=== PATIENT | female | born 1950 | race Caucasian/White ===

== ENCOUNTER 2022-07-11 11:15 | Outpatient (CLI) | payer MEDICARE, BC, SELFPAY ==
[2022-07-11 13:08] LABS: Albumin* 4.9 g/dL (3.3-5.0); Chloride* 105 mmol/L (96-114)
[2022-07-11 13:09] LABS: Potassium* 4.3 mmol/L (3.6-5.1); Sodium* 141 mmol/L (135-149)
[2022-07-11 13:11] LABS: Aspartate Amino Transferase* 22 U/L (12-35); Bilirubin Total* 2.1 mg/dL (0.1-1.5); Carbon Dioxide* 29 mmol/L (20-32); Creatinine* 0.7 mg/dL (0.5-1.5); Estimated Glomerular Filt Rate 92 ml/min
[2022-07-11 13:12] LABS: Alanine Aminotransferase* 17 U/L (4-35); Alkaline Phosphatase* 57 U/L (40-150); Blood Urea Nitrogen* 22 mg/dL (7-30); Calcium* 10.3 mg/dL (8.4-10.6); Glucose* 100 mg/dL (60-115); Total Protein* 7.5 g/dL (6.0-8.3)
== END 2022-07-11 11:16 | disposition home or self-care (01) ==
LOC: NFLDREF 11:16
PROVIDERS: PCP Internal Medicine; Visit Provider Family Medicine
DX: R42 Dizziness and giddiness (principal); R53.83 Other fatigue
CPT/HCPCS: 80053

== ENCOUNTER 2022-07-23 14:09 | Outpatient (RCR) | payer MEDICARE, BC, SELFPAY ==
[2022-07-23 14:35] LABS: Chloride* 102 mmol/L (96-114); Potassium* 3.8 mmol/L (3.6-5.1); Sodium* 138 mmol/L (135-149)
[2022-07-23 14:38] LABS: Creatinine* 0.7 mg/dL (0.5-1.5); Estimated Glomerular Filt Rate 92 ml/min
[2022-07-23 14:39] LABS: Blood Urea Nitrogen* 18 mg/dL (7-30); Calcium* 9.8 mg/dL (8.4-10.6); Carbon Dioxide* 27 mmol/L (20-32); Glucose* 127 mg/dL (60-115)
[2022-07-23] MEDS: DENOSUMAB 60 MG/ML SYRINGE SUBCUT (15:02)
--- NOTE | 2022-08-01 13:50 | URNOTE ---
Request received from [facility] for prior authorization of Prolia ([id number]). Patient carries Medicare as primary insurance. Prior authorization is not required for Prolia. Services are based on medical necessity and follows Medicare guidelines.
--- NOTE | 2022-09-24 11:26 | PC.NURSE ---
ONCOLOGY TRANSFER: Patient called today to discuss her options in transferring care. Patient informed that Dr. Sullivan will be joining the [facility] practice likely in January of 2023. Patient would like to continue her care with Dr. Sullivan and is comfortable transferring her care to the [facility] team. Patient will be due in January for follow up and Prolia. She is aware that we will contact her to schedule that follow up closer to the time it is due.
== END 2023-01-19 23:59 | disposition home or self-care (01) ==
LOC: CCIC 14:09
PROVIDERS: PCP Internal Medicine; Referring Provider Internal Medicine; Visit Provider Internal Medicine Hematology & Oncology
DX: C50.911 Malignant neoplasm of unspecified site of right female breast (principal); Z17.0 Estrogen receptor positive status [ER+]; Z79.811 Long term (current) use of aromatase inhibitors; M85.80 Other specified disorders of bone density and structure, unspecified site; M81.0 Age-related osteoporosis without current pathological fracture
CPT/HCPCS: 36415; 80048; 96372; 99212; 99214; J0897

== ENCOUNTER 2022-07-24 08:31 | Outpatient (CLI) | payer MEDICARE, BC, SELFPAY ==
--- NOTE | 2022-07-24 08:45 | CRLHL7_ITS ---
For Patients: As a result of the Century Cures Act, medical imaging exams and procedure reports are released immediately into your electronic medical record. You may view this report before your referring provider. If you have questions, please contact your health care provider. INDICATION: RUQ PAIN COMPARISON: none TECHNIQUE: Real time hall scale imaging and color Doppler analysis was performed of the right upper quadrant. FINDINGS: There is a subtle area of heterogeneous hyperechoic echotexture within the right hepatic lobe measuring 2.6 x 1.8 x 2.8 cm. There is a normal appearance of the hepatic IVC and proximal abdominal aorta. There is no evidence of ascites. The gallbladder is of normal size and there is no evidence of intraluminal stones or sludge. The gallbladder wall measures 1 mm in thickness. The common bile duct is of normal size and measures 2 mm in diameter at the level of the omar hepatis. The pancreas is heterogeneous within the pancreatic head. There is no evidence of a stone or hydronephrosis within the right kidney. The right kidney measures 12.0 cm in length. Multiple simple cysts are present measuring up to 6.7 cm. This larger cyst has thin internal septations considered benign. There is an indeterminate area slightly decreased echotexture with punctate foci of increased echogenicity within the upper pole of the right kidney measuring 3.4 cm. IMPRESSION: Indeterminate area of slightly increased echotexture within the right hepatic lobe measuring 2.8 cm. Indeterminate area of slightly hypoechoic echotexture within the upper pole of the right kidney. Multiple anechoic and other simple right renal cysts. Slightly hypoechoic echotexture of the pancreatic head considered indeterminate. Recommend routine CT of the abdomen and pelvis with contrast for further evaluation of the above findings. Dictated by Wyatt Andrews MD @ 07/24/2022 10:27:44 AM (Electronically Signed)
== END 2022-07-24 08:32 | disposition home or self-care (01) ==
LOC: US 08:32
PROVIDERS: PCP Internal Medicine; Visit Provider Internal Medicine
DX: R10.11 Right upper quadrant pain (principal); N28.9 Disorder of kidney and ureter, unspecified; N28.1 Cyst of kidney, acquired; K76.9 Liver disease, unspecified
CPT/HCPCS: 76705

== ENCOUNTER 2022-08-01 09:05 | Outpatient (CLI) | payer MEDICARE, BC, SELFPAY ==
--- NOTE | 2022-08-01 10:00 | CRLHL7_ITS ---
For Patients: As a result of the Century Cures Act, medical imaging exams and procedure reports are released immediately into your electronic medical record. You may view this report before your referring provider. If you have questions, please contact your health care provider. Indication: Right upper quadrant pain Technique: Postcontrast CT abdomen and pelvis. 59 cc Isovue 370 intravenous contrast. Please note that all CT scans at this facility use dose modulation, iterative reconstruction, and/or weight-based dosing when appropriate to reduce radiation dose to as low as reasonably achievable. Comparison: Ultrasound 07/24/2022 Findings: There is an incidental focus of fat deposition within the liver adjacent to the falciform ligament. Incidental subcentimeter cyst is located within the right hepatic lobe. No suspicious hepatic mass. No stigmata of cirrhosis. No ascites. Gallbladder normal. The pancreatic parenchyma is also normal. No pancreatic mass or evidence of inflammation. There is an incidental duodenal diverticulum measuring 2.2 cm. Multiple cystic lesions are associated with the kidneys bilaterally. The largest on the left contains peripheral coarse calcifications and measures up to 6.7 cm, compatible with a Bosniak 2 cyst. This is benign. The largest cyst on the right measures 5.9 cm. Small hypodense cysts are present within the upper pole of the right kidney measuring up to 1.1 cm. No suspicious renal mass within the upper pole. Vascular calcifications. Adrenal glands normal. Mild ectasia of the aorta without aneurysm. No splenic lesion. No adenopathy. Bladder normal. Uterus unremarkable. No adnexal mass. No free air or free fluid. There is increased stool within the redundant colon. No small bowel obstruction. No inflammatory change. The appendix is absent. Lung bases are clear. Multilevel degenerative changes. No fracture or suspicious osseous lesion. Impression: Multifocal benign findings throughout the abdomen without suspicion for malignancy/metastatic disease. Increased stool within the redundant colon suggesting chronic constipation. Mild incidental sigmoid diverticulosis. Please note that all CT scans at this facility use dose modulation, iterative reconstruction, and/or weight-based dosing when appropriate to reduce radiation dose to as low as reasonably achievable. Dictated by Wyatt Andrews MD @ 08/01/2022 10:38:17 AM (Electronically Signed)
== END 2022-08-01 09:06 | disposition home or self-care (01) ==
LOC: CT 09:06
PROVIDERS: PCP Internal Medicine; Visit Provider Internal Medicine
DX: R10.11 Right upper quadrant pain (principal)
CPT/HCPCS: 74177; Q9967

== ENCOUNTER 2022-12-13 16:40 | Emergency (ER) | payer MEDICARE, BC, SELFPAY ==
[2022-12-13] VITALS (7 sets, daily range): BP systolic 118–174; BP diastolic 78–105; PULSE 90–105; RESP 13–22; TEMP 36.4; O2SAT 96–100; BMI 23.8
--- NOTE | 2022-12-13 16:53 | CRLHL7_ITS ---
For Patients: As a result of the Century Cures Act, medical imaging exams and procedure reports are released immediately into your electronic medical record. You may view this report before your referring provider. If you have questions, please contact your health care provider. DATE: 12/13/2022 CLINICAL HISTORY: Patient with focal neurological deficits. TECHNIQUE: Standard helical CT image acquisition through the intracranial circulation following intravenous administration of contrast material with bolus tracking. Multiplanar reconstructed images were performed and interpreted. COMPARISON: CT same day. FINDINGS: There is no cerebral aneurysm or large vessel occlusion. The right internal carotid artery is normal. The right middle cerebral artery and its branches are normal. The right anterior cerebral artery and its branches are normal. The left internal carotid artery is normal. The left middle cerebral artery and its branches are normal. The left anterior cerebral artery and its branches are normal. The anterior communicating artery is well visualized and appears normal. The right vertebral artery and PICA are normal. The left vertebral artery and PICA are normal. The left vertebral artery is dominant. The basilar artery is patent and appears normal. The right posterior cerebral artery is normal. The left posterior cerebral artery is normal. The visualized venous structures are patent. IMPRESSION: Normal CT angiogram of the head without intracranial aneurysm or other neurovascular abnormality. Please note that all CT scans at this facility use dose modulation, iterative reconstruction, and/or weight-based dosing when appropriate to reduce radiation dose to as low as reasonably achievable. Dictated by Jen Dewitt MD @ 12/13/2022 6:11:11 PM (Electronically Signed)
--- NOTE | 2022-12-13 16:53 | CRLHL7_ITS ---
For Patients: As a result of the Cures Act, medical imaging exams and procedure reports are released immediately into your electronic medical record. You may view this report before your referring provider. If you have questions, please contact your health care provider. DATE: 12/13/2022 CLINICAL HISTORY: Patient with focal neurological deficits. TECHNIQUE: Standard helical CT image acquisition of the neck up to the skull base after bolus intravenous contrast enhancement. Multiplanar reconstructed images performed on a separate workstation. COMPARISON: CT same day. FINDINGS: The origins of the great vessels from the aortic arch are patent. The origin of the right vertebral artery is patent. The origin of the left vertebral artery is patent. The common carotid arteries are patent. There is no stenosis at the origin of the right internal carotid artery. There is no stenosis at the origin of the left internal carotid artery. The rest of the cervical segments of the internal carotid arteries are patent up to the skull base. The left vertebral artery is dominant. The cervical segments of the vertebral arteries are patent up to the skull base. The visualized lung apices are unremarkable. The thyroid gland is unremarkable. The soft tissues of the neck are unremarkable. There are degenerative changes in the cervical spine. IMPRESSION: Normal CT angiogram of the neck. Please note that all CT scans at this facility use dose modulation, iterative reconstruction, and/or weight-based dosing when appropriate to reduce radiation dose to as low as reasonably achievable. Dictated by Jen Dewitt MD @ 12/13/2022 6:06:42 PM (Electronically Signed)
--- NOTE | 2022-12-13 16:53 | CRLHL7_ITS ---
For Patients: As a result of the Cures Act, medical imaging exams and procedure reports are released immediately into your electronic medical record. You may view this report before your referring provider. If you have questions, please contact your health care provider. INDICATION: Possible stroke. COMPARISON: None. TECHNIQUE: CT of the head without IV contrast. Coronal and sagittal reconstructions. FINDINGS: No intracranial hemorrhage, mass effect, or evidence of acute infarct. No midline shift. No abnormal extra-axial fluid collections. Mild generalized cerebral and cerebellar volume loss with associated ex vacuo dilation of the lateral ventricles. Orbits and extraocular muscles are symmetric. Mild mucosal thickening in the maxillary sinuses. The paranasal sinuses and mastoid air cells are otherwise clear. No acute fracture identified. Soft tissues are unremarkable. IMPRESSION: No acute intracranial findings. Please note that all CT scans at this facility use dose modulation, iterative reconstruction, and/or weight-based dosing when appropriate to reduce radiation dose to as low as reasonably achievable. Dictated by Yani Velasquez MD @ 12/13/2022 5:36:38 PM (Electronically Signed)
[2022-12-13 17:03] LABS: Lactate* 1.8 mmol/L (0.5-1.9)
--- NOTE | 2022-12-13 17:04 | ED.GENADULT ---
HPI - General Adult General Chief complaint: Altered Mental Status Stated complaint: possible stroke Time Seen by Provider: 12/13/22 16:52 Source: patient and family Mode of arrival: ambulatory Limitations: altered mental status History of Present Illness HPI narrative: 72-year-old female coming in today with acute confusion. states that they were having sexual intercourse and afterwards or lying in bed when all of a sudden she looked at him confused asked him why they were having this conversation. He explain to her what they were talking about and she became acutely agitated and stated that she did not know what day it was, what they were doing or what her name was. She started crying. She did repeat the same questions repeatedly. And he brought her into the emergency room. Upon arrival patient is very agitated. She is very tearful and anxious. Patient's tells me that this is very abnormal behavior for her. Denies any recent illness. States that she has been acting normal up until approximately 1 hour ago when this started. Related Data Home Medications Medication Instructions Recorded Confirmed acetaminophen 325 mg tablet 650 mg PO Q4-6H PRN 07/18/22 10/03/22 calcium carbonate 600 mg-vitamin 2 cap PO DAILY 07/18/22 10/03/22 D3 12.5 mcg (500 unit) capsule cholecalciferol (vitamin D3) 25 1,000 unit PO DAILY 07/18/22 10/03/22 mcg (1,000 unit) tablet denosumab 60 mg/mL subcutaneous 60 mg subcut [id number] 07/18/22 10/03/22 syringe ibuprofen 200 mg tablet 400 mg PO Q4-6H PRN 07/18/22 10/03/22 coQ10 (ubiquinol) 100 mg capsule 100 mg PO DAILY 10/03/22 10/03/22 Previous Rx's Medication Instructions Recorded anastrozole 1 mg tablet (Arimidex) 1 mg PO QDAY #100 tabs 06/26/22 nirmatrelvir 300 mg (150 mg 3 ea PO QAM AND QPM #30 tabs 10/03/22 x2)-ritonavir 100 mg tablet,dose pack(EUA) (Paxlovid) Allergies Allergy/AdvReac Type Severity Reaction Status Date / Time No Known Allergies Allergy Unknown unknown Uncoded 10/03/22 16:12 Review of Systems Status of ROS: Reports: unobtainable due to mental status PFSH PFSH Surgical History History of appendectomy (05/19/09) History of tubal ligation (05/19/09) Social History Smoking Status: Never smoker Exam Narrative: Exam Narrative: Well-nourished well-developed patient very agitated and tearful. Alert and oriented x2, cannot tell me the date or year. She can tell me her name, where she is, who is in the room. She knows the president. Patient speaks in full sentences without needing to catch her breath. GCS is 15. HEENT: Normocephalic atraumatic. Pupils are equally round reactive to light. Extraocular muscles are intact. Conjunctivae are moist without any icterus noted. Moist mucous membranes. Posterior pharynx is normal. Neck is soft without any lymphadenopathy or thyromegaly. No masses are appreciated. Cardiovascular: Heart is regular rate and rhythm S1 and S2 are present without any murmurs. Lungs: Clear to auscultation bilaterally no wheezes rhonchi or rales are appreciated. Patient takes deep breaths without any discomfort. Abdomen: Soft and nontender nondistended with normal bowel sounds. Extremities: Bilateral lower extremities are without edema. Normal DP and PT pulses. Skin: Well perfused without any obvious rashes. Strength is 5/5 of the upper and lower extremities. Reflexes are 2+ and symmetric at the knees. Cranial nerves 3-12 are normal. There is no nystagmus either horizontally or vertically. Const: Vital Signs, click to edit/add: Vital Signs - 24 hr 12/13/22 16:46 Temperature 97.5 F L Pulse Rate [Pulse Oximeter] 102 H Respiratory Rate 22 Blood Pressure [Ri ght Upper Arm] 174/95 H Pulse Oximetry 98 Oxygen Delivery Me thod Room Air Course Course Hospital Course: Patient went to CT scan immediately. Scans are unremarkable. Labs were all normal. EKG shows normal sinus rhythm with a pulse of 93, prolonged QT. Did re-evaluate the patient after CT scans and after she received a dose IV Ativan. Her symptoms ready significantly better. She could tell me the date, year, president where she was. She was started to remember things from earlier in the day such as what she had for breakfast. I did consult Neurology, Dr. Cervantes, at [facility] who felt that this represented a post intercourse transient global amnesia given her normal workup. Given her symptoms, timing of symptoms and the fact that she was already improving, this certainly does fit. Vital Signs Vital signs: Initial Vital Signs Temperature 97.5 F L 12/13/22 16:46 Temperature Source Temporal Artery Scan 12/13/22 16:46 Pulse Rate 102 H 12/13/22 16:46 Pulse Rhythm 12/13/22 16:46 Pulse Strength 3+ Normal 12/13/22 16:46 Respiratory Rate 22 12/13/22 16:46 Blood Pressure 174/95 H 12/13/22 16:46 Blood Pressure Mean 121 12/13/22 16:46 Blood Pressure Position Sitting 12/13/22 16:46 Pulse Oximetry 98 12/13/22 16:46 Oxygen Delivery Method 12/13/22 16:46 Vital Signs Temperature 97.5 F L 12/13/22 16:46 Pulse Rate 102 H 12/13/22 16:46 Respiratory Rate 22 12/13/22 16:46 Blood Pressure 174/95 H 12/13/22 16:46 Pulse Oximetry 98 12/13/22 16:46 Oxygen Delivery Method 12/13/22 16:46 Temperature 97.5 F L 12/13/22 16:46 Pulse Rate 102 H 12/13/22 16:46 Respiratory Rate 22 12/13/22 16:46 Blood Pressure 174/95 H 12/13/22 16:46 Pulse Oximetry 98 12/13/22 16:46 Oxygen Delivery Method 12/13/22 16:46 Medical Decision Making MDM Narrative Medical decision making narrative: 72-year-old female with transient global amnesia. We discussed the possibility of stroke and TIA. However given the timing of sexual intercourse and the presentation of her symptoms the most likely diagnosis is indeed transient global amnesia. We discussed following up with primary care provider as needed. Return to the ER if symptoms return. Patient was agreeable had no other questions. Lab Data Lab results reviewed: Yes I reviewed the patient's lab results Labs: Lab Results 12/13/22 12/13/22 12/13/22 Range/Units 16:50 16:50 16:50 WBC 8.12 (4.50-11.00) K/uL RBC 4.96 (4.00-5.20) m/uL Hgb 14.8 (12.0-16.0) gm/dL Hct 43.7 (33.0-51.0) % MCV 88 (80-100) fL MCH 30 (26-34) pg MCHC 34 (32-36) gm/dL RDW Coeff of Lidia 13.2 (11.5-15.5) % Plt Count 268 (140-440) K/uL Neut % (Auto) 53.1 (42.0-72.0) % Lymph % (Auto) 38.9 (20-44) % [place] % (Auto) 6.4 (0.0-11.0) % Eos % (Auto) 1.0 (0.0-7.0) % Baso % (Auto) 0.6 (0.0-3.0) % Neut # (Auto) 4.31 (1.7-7.0) K/uL Lymph # (Auto) 3.16 H (0.90-2.90) K/uL [place] # (Auto) 0.50 (0.00-0.90) K/UL Eos # (Auto) 0.08 (0.00-0.50) K/uL Baso # (Auto) 0.05 (0.00-0.30) K/uL Sodium 141 (135-149) mmol/L Potassium 3.8 (3.6-5.1) mmol/L Chloride 108 (96-114) mmol/L Carbon Dioxide 24 (20-32) mmol/L BUN 18 (7-30) mg/dL Creatinine 0.6 (0.5-1.5) mg/dL Estimated Creat Clear 40.22 Estimated GFR 95 ml/min Glucose 114 (60-115) mg/dL Lactate 1.8 (0.5-1.9) mmol/L Calcium 9.7 (8.4-10.6) mg/dL Total Bilirubin 1.7 H (0.1-1.5) mg/dL Direct Bilirubin 0.0 (0.0-0.5) mg/dL AST 25 (12-35) U/L ALT 22 (4-35) U/L Alkaline Phosphatase 67 (40-150) U/L C-Reactive Protein < 0.5 L (0.5-1.0) mg/dL Total Protein 7.7 (6.0-8.3) g/dL Albumin 4.8 (3.3-5.0) g/dL Urine Color (Yellow) Urine Appearance (Clear) Urine pH (5.0-8.5) Ur Specific [place] (1.000-1.030) Urine Protein (Negative) Urine Glucose (UA) (Negative) Urine Ketones (Negative) Urine Blood (Negative) Urine Nitrite (Negative) Urine Bilirubin (Negative) Urine Urobilinogen (0.2-1.0) Ur Leukocyte Esterase (Negative) Urine Opiates Screen (Negative) Ur Oxycodone Screen (Negative) Urine Methadone Screen (Negative) Ur Propoxyphene Screen (Negative) Acetaminophen < 10.0 L (10.0-30.0) ug/mL Ur Barbiturates Screen (Negative) U Tricyclic Antidepress (Negative) Ur Phencyclidine Scrn (Negative) Ur Amphetamines Screen (Negative) U Methamphetamines Scrn (Negative) U Benzodiazepines Scrn (Negative) Urine Cocaine Screen (Negative) U Marijuana (THC) Screen (Negative) Ur Drug Screen Comment Ethyl Alcohol < 0.01 L (0.01-0.03) % SARS-CoV-2 (PCR) (Negative) POC Troponin I (0.01-0.04) ng/ml 12/13/22 12/13/22 12/13/22 Range/Units 16:50 16:55 17:26 WBC (4.50-11.00) K/uL RBC (4.00-5.20) m/uL Hgb (12.0-16.0) gm/dL Hct (33.0-51.0) % MCV (80-100) fL MCH (26-34) pg MCHC (32-36) gm/dL RDW Coeff of Lidia (11.5-15.5) % Plt Count (140-440) K/uL Neut % (Auto) (42.0-72.0) % Lymph % (Auto) (20-44) % [place] % (Auto) (0.0-11.0) % Eos % (Auto) (0.0-7.0) % Baso % (Auto) (0.0-3.0) % Neut # (Auto) (1.7-7.0) K/uL Lymph # (Auto) (0.90-2.90) K/uL [place] # (Auto) (0.00-0.90) K/UL Eos # (Auto) (0.00-0.50) K/uL Baso # (Auto) (0.00-0.30) K/uL Sodium (135-149) mmol/L Potassium (3.6-5.1) mmol/L Chloride (96-114) mmol/L Carbon Dioxide (20-32) mmol/L BUN (7-30) mg/dL Creatinine (0.5-1.5) mg/dL Estimated Creat Clear Estimated GFR ml/min Glucose (60-115) mg/dL Lactate (0.5-1.9) mmol/L Calcium (8.4-10.6) mg/dL Total Bilirubin (0.1-1.5) mg/dL Direct Bilirubin (0.0-0.5) mg/dL AST (12-35) U/L ALT (4-35) U/L Alkaline Phosphatase (40-150) U/L C-Reactive Protein (0.5-1.0) mg/dL Total Protein (6.0-8.3) g/dL Albumin (3.3-5.0) g/dL Urine Color (Yellow) Urine Appearance (Clear) Urine pH (5.0-8.5) Ur Specific [place] (1.000-1.030) Urine Protein (Negative) Urine Glucose (UA) (Negative) Urine Ketones (Negative) Urine Blood (Negative) Urine Nitrite (Negative) Urine Bilirubin (Negative) Urine Urobilinogen (0.2-1.0) Ur Leukocyte Esterase (Negative) Urine Opiates Screen Negative (Negative) Ur Oxycodone Screen Negative (Negative) Urine Methadone Screen Negative (Negative) Ur Propoxyphene Screen Negative (Negative) Acetaminophen (10.0-30.0) ug/mL Ur Barbiturates Screen Negative (Negative) U Tricyclic Antidepress Negative (Negative) Ur Phencyclidine Scrn Negative (Negative) Ur Amphetamines Screen Negative (Negative) U Methamphetamines Scrn Negative (Negative) U Benzodiazepines Scrn Negative (Negative) Urine Cocaine Screen Negative (Negative) U Marijuana (THC) Screen Negative (Negative) Ur Drug Screen Comment See Note Ethyl Alcohol (0.01-0.03) % SARS-CoV-2 (PCR) Negative SARS-CoV-2 (Negative) POC Troponin I 0.00 L (0.01-0.04) ng/ml 12/13/22 Range/Units 17:26 WBC (4.50-11.00) K/uL RBC (4.00-5.20) m/uL Hgb (12.0-16.0) gm/dL Hct (33.0-51.0) % MCV (80-100) fL MCH (26-34) pg MCHC (32-36) gm/dL RDW Coeff of Lidia (11.5-15.5) % Plt Count (140-440) K/uL Neut % (Auto) (42.0-72.0) % Lymph % (Auto) (20-44) % [place] % (Auto) (0.0-11.0) % Eos % (Auto) (0.0-7.0) % Baso % (Auto) (0.0-3.0) % Neut # (Auto) (1.7-7.0) K/uL Lymph # (Auto) (0.90-2.90) K/uL [place] # (Auto) (0.00-0.90) K/UL Eos # (Auto) (0.00-0.50) K/uL Baso # (Auto) (0.00-0.30) K/uL Sodium (135-149) mmol/L Potassium (3.6-5.1) mmol/L Chloride (96-114) mmol/L Carbon Dioxide (20-32) mmol/L BUN (7-30) mg/dL Creatinine (0.5-1.5) mg/dL Estimated Creat Clear Estimated GFR ml/min Glucose (60-115) mg/dL Lactate (0.5-1.9) mmol/L Calcium (8.4-10.6) mg/dL Total Bilirubin (0.1-1.5) mg/dL Direct Bilirubin (0.0-0.5) mg/dL AST (12-35) U/L ALT (4-35) U/L Alkaline Phosphatase (40-150) U/L C-Reactive Protein (0.5-1.0) mg/dL Total Protein (6.0-8.3) g/dL Albumin (3.3-5.0) g/dL Urine Color Yellow (Yellow) Urine Appearance Clear (Clear) Urine pH 6.5 (5.0-8.5) Ur Specific [place] 1.010 (1.000-1.030) Urine Protein Negative (Negative) Urine Glucose (UA) Negative (Negative) Urine Ketones 1+ A (Negative) Urine Blood Negative (Negative) Urine Nitrite Negative (Negative) Urine Bilirubin Negative (Negative) Urine Urobilinogen 0.2 (0.2-1.0) Ur Leukocyte Esterase Negative (Negative) Urine Opiates Screen (Negative) Ur Oxycodone Screen (Negative) Urine Methadone Screen (Negative) Ur Propoxyphene Screen (Negative) Acetaminophen (10.0-30.0) ug/mL Ur Barbiturates Screen (Negative) U Tricyclic Antidepress (Negative) Ur Phencyclidine Scrn (Negative) Ur Amphetamines Screen (Negative) U Methamphetamines Scrn (Negative) U Benzodiazepines Scrn (Negative) Urine Cocaine Screen (Negative) U Marijuana (THC) Screen (Negative) Ur Drug Screen Comment Ethyl Alcohol (0.01-0.03) % SARS-CoV-2 (PCR) (Negative) POC Troponin I (0.01-0.04) ng/ml Imaging Data CT scan - head: Attestation: I have reviewed the pertinent imaging results. Radiologist's impression: TECHNIQUE: CT of the head without IV contrast. Coronal and sagittal reconstructions. FINDINGS: No intracranial hemorrhage, mass effect, or evidence of acute infarct. No midline shift. No abnormal extra-axial fluid collections. Mild generalized cerebral and cerebellar volume loss with associated ex vacuo dilation of the lateral ventricles. Orbits and extraocular muscles are symmetric. Mild mucosal thickening in the maxillary sinuses. The paranasal sinuses and mastoid air cells are otherwise clear. No acute fracture identified. Soft tissues are unremarkable. IMPRESSION: No acute intracranial findings. Head neck CTA: Attestation: I have reviewed the pertinent imaging results. Radiologist's impression: Study:?CT Head Angio W/IV-12/13/2022 5:24:36 PM Ordering Physician:Chaim Kirby Preliminary Report: 1. No intracranial proximal large vessel occlusion or significant aneurysm identified. Left dominant vertebral artery. 2. Cervical arterial vasculature is patent without evidence of dissection, significant stenosis, or occlusion. ECG Data Attestation: I personally reviewed and interpreted this ECG as follows: (Normal sinus rhythm, pulse 93, prolonged QT) Discharge Plan Discharge Clinical Impression: Transient global amnesia Patient Disposition: Home, Self-Care Condition: Improved Additional Instructions: Follow-up with your doctor as needed. Return to the ER if symptoms return. Prescriptions: No Action Paxlovid (EUA) 300 mg (150 mg x 2)-100 mg tablets,dose pack 3 ea PO QAM AND QPM Qty: 30 0RF acetaminophen 325 mg tablet 650 mg PO Q4-6H PRN Rx Instructions: NO MORE THAN 4000 MG/DAY ibuprofen 200 mg tablet 400 mg PO Q4-6H PRN denosumab 60 mg/mL syringe 60 mg subcut [id number] cholecalciferol (vitamin D3) 25 mcg (1,000 unit) tablet 1,000 unit PO DAILY calcium carbonate-vitamin D3 600 mg-12.5 mcg (500 unit) capsule 2 cap PO DAILY coQ10 (ubiquinol) 100 mg capsule 100 mg PO DAILY anastrozole [Arimidex] 1 mg tablet 1 mg PO QDAY Qty: 100 3RF Follow Up/Referrals: Edita Mirza MD [Primary Care Provider] - Stand Alone Forms: [facility] Info Instructions
[2022-12-13 17:05] LABS: Basophils Absolute Auto 0.05 K/uL (0.00-0.30); Basophils Percent Auto 0.6 % (0.0-3.0); Eosinophils Absolute Auto 0.08 K/uL (0.00-0.50); Hematocrit 43.7 % (33.0-51.0); Hemoglobin* 14.8 gm/dL (12.0-16.0); Lymphocytes Absolute Auto 3.16 K/uL (0.90-2.90); Lymphocytes Percent Auto 38.9 % (20-44); Mean Corpuscular HGB Conc 34 gm/dL (32-36); Mean Corpuscular Hemoglobin 30 pg (26-34); Mean Corpuscular Volume 88 fL (80-100); Monocytes Percent Auto 6.4 % (0.0-11.0); Neutrophils Absolute Auto 4.31 K/uL (1.7-7.0); Neutrophils Percent Auto 53.1 % (42.0-72.0); Platelet Count* 268 K/uL (140-440); RDW Coefficient of Variation % 13.2 % (11.5-15.5); Red Blood Count 4.96 m/uL (4.00-5.20); Slide Review Reflex No; White Blood Count* 8.12 K/uL (4.50-11.00)
[2022-12-13 17:15] LABS: Chloride* 108 mmol/L (96-114)
[2022-12-13 17:16] LABS: Albumin* 4.8 g/dL (3.3-5.0); Sodium* 141 mmol/L (135-149)
[2022-12-13 17:17] LABS: Potassium* 3.8 mmol/L (3.6-5.1)
[2022-12-13 17:18] LABS: Creatinine* 0.6 mg/dL (0.5-1.5); Est. Creatinine Clearance* 40.22; Estimated Glomerular Filt Rate 95 ml/min
[2022-12-13] MEDS: LORazepam 2 MG/ML inj 0.5 MG IVP (17:18)
[2022-12-13 17:19] LABS: Alanine Aminotransferase* 22 U/L (4-35); Alkaline Phosphatase* 67 U/L (40-150); Aspartate Amino Transferase* 25 U/L (12-35); Bilirubin Total* 1.7 mg/dL (0.1-1.5); Blood Urea Nitrogen* 18 mg/dL (7-30); Calcium* 9.7 mg/dL (8.4-10.6); Carbon Dioxide* 24 mmol/L (20-32); Glucose* 114 mg/dL (60-115); Total Protein* 7.7 g/dL (6.0-8.3)
[2022-12-13 17:23] LABS: Acetaminophen* < 10.0 ug/mL (10.0-30.0); C Reactive Protein* < 0.5 mg/dL (0.5-1.0); Ethanol* < 0.01 % (0.01-0.03)
[2022-12-13 17:38] LABS: SARS PCR* Negative SARS-CoV-2 (Negative)
[2022-12-13 17:41] LABS: Appearance Urine Clear (Clear); Bilirubin Urine Negative (Negative); Blood Urine Negative (Negative); Color Urine Yellow (Yellow); Glucose Urine Negative (Negative); Ketones Urine 1+ (Negative); Leukocyte Esterase Urine Negative (Negative); Nitrite Urine Negative (Negative); Protein Urine Negative (Negative); Urobilinogen Urine 0.2 (0.2-1.0); pH Urine 6.5 (5.0-8.5)
[2022-12-13 17:46] LABS: Amphetamine Screen Urine Negative (Negative); Barbiturate Screen Urine Negative (Negative); Benzodiazepines Screen Urine Negative (Negative); Cannabinoid Screen Urine Negative (Negative); Cocaine Screen Urine Negative (Negative); Methadone Screen Urine Negative (Negative); Methamphetamines Screen Urine Negative (Negative); Opiate Screen Urine Negative (Negative); Oxycodone Screen Urine Negative (Negative); Phencyclidine Screen Urine Negative (Negative); Tricyclic Antidepressant Urine Negative (Negative)
[2022-12-13 18:24] LABS: RBC Urine 0-2 (0-2); WBC Urine 0-2 (0-5)
== END 2022-12-13 18:36 | disposition home or self-care (01) ==
PROVIDERS: Emergency Provider Family Medicine; PCP Internal Medicine
DX: G45.4 Transient global amnesia (principal)
CPT/HCPCS: 36415; 70450; 70496; 70498; 80048; 80076; 80143; 80306; 81001; 82077; 82962; 83605; 84484; 85025; 86140; 87086; 87635; 93005; 94761; 96374; 99284; 99285; J2060; Q9967

== ENCOUNTER 2023-02-06 07:50 | Outpatient (RCR) | payer MEDICARE, BC, SELFPAY ==
[2023-01-21 13:42] VITALS: BP 129/84; PULSE 75; RESP 16; TEMP 37.1; O2SAT 98
[2023-01-21 13:43] LABS: Calcium* 9.8 mg/dL (8.4-10.6)
[2023-01-21 14:27] LABS: Creatinine* 0.7 mg/dL (0.5-1.5); Estimated Glomerular Filt Rate 92 ml/min
[2023-01-21] MEDS: DENOSUMAB 60 MG/ML SYRINGE SUBCUT (14:42)
--- NOTE | 2023-01-21 15:37 | ONC.NURNOTE ---
Pt here today for Prolia. No hx of side effects or adverse reactions with previous Prolia injections. No dental concerns; Aruna/Isabel KOCHL.
== END 2023-07-20 23:59 | disposition home or self-care (01) ==
LOC: CCIC 07:50
PROVIDERS: PCP Internal Medicine; Referring Provider Internal Medicine; Visit Provider Internal Medicine Hematology & Oncology
DX: C50.911 Malignant neoplasm of unspecified site of right female breast (principal); Z17.0 Estrogen receptor positive status [ER+]; Z79.811 Long term (current) use of aromatase inhibitors; M81.0 Age-related osteoporosis without current pathological fracture; G43.909 Migraine, unspecified, not intractable, without status migrainosus
CPT/HCPCS: 36415; 82310; 82565; 96372; 99212; 99214; J0897

== ENCOUNTER 2023-02-25 08:30 | Outpatient (CLI) | payer MEDICARE, BC, SELFPAY ==
--- NOTE | 2023-02-25 08:45 | CRLHL7_ITS ---
For Patients: As a result of the Century Cures Act, medical imaging exams and procedure reports are released immediately into your electronic medical record. You may view this report before your referring provider. If you have questions, please contact your health care provider. BILATERAL SCREENING MAMMOGRAM WITH COMPUTER-AIDED DETECTION AND TOMOSYNTHESIS TECHNIQUE: CC and MLO views were obtained. These mammographic images have been obtained using full-field digital technique. These mammographic images were interpreted with the benefit of computer-aided detection. Breast Tomosynthesis was used in this interpretation. COMPARISON FILM: 02/22/22, 02/12/21, 10/12/19 FINDINGS: There are scattered areas of fibroglandular density. Postbiopsy postsurgical changes in the RIGHT breast. IMPRESSION: There is no radiographic evidence for malignancy. ASSESSMENT: BI-RADS Category 2: Benign RECOMMENDATION: Routine screening mammogram in 1 year. A lay language report of this examination will be provided to the patient. Denton Sullivan M.D. Diagnostic/Nuclear Medicine Radiologist [email or web address] Transcribed: 9:03 a.m. PT/Dictated by: Denton Sullivan MD @ 02/25/2023 10:36:00 AM (Electronically Signed)
== END 2023-02-25 08:31 | disposition home or self-care (01) ==
LOC: MAMMO 08:32
PROVIDERS: PCP Internal Medicine; Visit Provider Internal Medicine
DX: Z12.31 Encounter for screening mammogram for malignant neoplasm of breast (principal)
CPT/HCPCS: 77063; 77067

== ENCOUNTER 2023-06-18 14:43 | Outpatient (CLI) | payer MEDICARE, BC, SELFPAY ==
--- NOTE | 2023-06-18 15:00 | CRLHL7_ITS ---
For Patients: As a result of the Century Cures Act, medical imaging exams and procedure reports are released immediately into your electronic medical record. You may view this report before your referring provider. If you have questions, please contact your health care provider. DXA BONE MINERAL DENSITY STUDY Current height (in): 62.0. Weight (lb): 122.0. Menopause age: 48. Ethnicity: White. Reason for exam: Osteoporosis. 1. Have you had a previous hip or vertebral fracture? No. 2. Have you had any fractures during your adult life which did not result from significant trauma (e.g., auto accident)? No. 3. Did either of your parents have a hip fracture? Yes. 4. Do you smoke? No. 5. Have you ever taken Glucocorticoids? No. 6. Do you have rheumatoid arthritis? No. 7. Do you have secondary osteoporosis? No. 8. Do you drink 3 or more alcoholic drinks per day? No. 9. Are you being treated for osteoporosis? Yes. 10. Have you ever taken any of the following medications: Actonel, Evista, Fosamax, Miacalcin, Reclast, Boniva, Forteo, HRT (i.e. estrogen/hormone therapy), Protelos, Prolia, Vitamin D, Calcium, other ??? please specify. ANSWER: Yes, vitamin D, calcium, Prolia. 11. Do you have any of the following medical conditions: Anorexia or bulimia, asthma or emphysema, end stage renal disease, hyperparathyroidism, any seizure disorders, cancer, inflammatory bowel diseases, hysterectomy, other ??? please specify. ANSWER: Yes, cancer. 12. What was your maximum height (inches)? 63. 13. Do you perform weight bearing exercise regularly? No. 14. Do you regularly consume dairy products? Yes. 15. Do you drink caffeinated beverages? No. 16. At what age did your period start? 11. 17. Are you premenopausal? No. 18. How many full term pregnancies have you had? 4. 19. Have you ever missed your period for more than 6 months in a row (not including or menopause)? No. TECHNIQUE: Bone mineral density study was performed using the [employer]. FINDINGS: The results of the study expressed as bone mineral density (BMD) are as follows: Lumbar spine L1 to L4: BMD: 0.895 g/cm2. T-score: -1.4. Z-score: 0.9. Neck Left: BMD: 0.561 g/cm2. T-score: -2.6. Z-score: -0.7. Right: BMD: 0.581 g/cm2. T-score: -2.4. Z-score: -0.5. Total Left: BMD: 0.638 g/cm2. T-score: -2.5. Z-score: -0.8. Right: BMD: 0.688 g/cm2. T-score: -2.1. Z-score: -0.4. IMPRESSION: Osteoporosis. *Comparison exams done prior to 04/2020 were performed on different unit, [employer]. COMPARISON: Compared with scan of 04/19/2021, the bone mineral density has increased by 3.2 percent at the spine and increased by 4.8 percent at the hip. Wyatt Andrews M.D. Diagnostic Radiologist [email or web address] Transcribed: 10:55 am DW/Dictated by: Wyatt Andrews MD @ 06/19/2023 9:45:00 AM (Electronically Signed)
== END 2023-06-18 14:44 | disposition home or self-care (01) ==
LOC: RAD 14:44
PROVIDERS: PCP Internal Medicine; Visit Provider Internal Medicine Hematology & Oncology
DX: M81.0 Age-related osteoporosis without current pathological fracture (principal)
CPT/HCPCS: 77080

== ENCOUNTER 2023-07-18 12:00 | Outpatient (CLI) | payer MEDICARE, BC, SELFPAY | END 2023-07-18 12:01 | disposition home or self-care (01) | LOC: NFLDREF 07-20 01:29 | PROVIDERS: PCP Internal Medicine; Referring Provider Internal Medicine; Visit Provider Physician Assistant | DX: R10.9 Unspecified abdominal pain (principal) | CPT/HCPCS: 87086 ==

== ENCOUNTER 2023-08-06 13:42 | Outpatient (RCR) | payer MEDICARE, BC, SELFPAY ==
[2023-07-24 14:00] VITALS: BP 123/82; PULSE 75; RESP 16; TEMP 36.6; O2SAT 99
[2023-07-24 14:27] LABS: Potassium* 4.5 mmol/L (3.6-5.1); Sodium* 140 mmol/L (135-149)
[2023-07-24 14:30] LABS: Blood Urea Nitrogen* 21 mg/dL (7-30); Calcium* 10.7 mg/dL (8.4-10.6); Carbon Dioxide* 29 mmol/L (20-32); Creatinine* 0.7 mg/dL (0.5-1.5); Estimated Glomerular Filt Rate 92 ml/min; Glucose* 105 mg/dL (60-115)
[2023-07-24 14:43] LABS: Anion Gap 7 mEq/L (7-15); Chloride* 104 mmol/L (96-114)
[2023-07-24] MEDS: DENOSUMAB 60 MG/ML SYRINGE SUBCUT (14:58)
--- NOTE | 2024-01-14 10:58 | URNOTE ---
Request received for authorization for?Denosumab ([employer]) ([id number]). Prior authorization is not required as services are based on medical necessity and follow Medicare guidelines.
== END 2024-01-20 23:59 | disposition home or self-care (01) ==
LOC: CCIC 13:42
PROVIDERS: PCP Internal Medicine; Referring Provider Internal Medicine; Visit Provider Internal Medicine Hematology & Oncology
DX: C50.911 Malignant neoplasm of unspecified site of right female breast (principal); Z17.0 Estrogen receptor positive status [ER+]; Z79.811 Long term (current) use of aromatase inhibitors; M81.0 Age-related osteoporosis without current pathological fracture; G43.909 Migraine, unspecified, not intractable, without status migrainosus
CPT/HCPCS: 36415; 80048; 96372; 99212; 99214; J0897

== ENCOUNTER 2023-08-11 08:56 | Outpatient (CLI) | payer MEDICARE, BC, SELFPAY ==
--- NOTE | 2023-08-11 09:15 | CRLHL7_ITS ---
For Patients: As a result of the Century Cures Act, medical imaging exams and procedure reports are released immediately into your electronic medical record. You may view this report before your referring provider. If you have questions, please contact your health care provider. Indication: LEFT AXILLA PALPABLE AREA Technique: Grayscale and color Doppler ultrasound of the left axilla performed. Comparison: 04/15/2022 Findings: Normal left axillary lymph nodes are present measuring 1.2 x 0.4 x 2.5 cm and 1.4 x 0.3 x 1.0 cm. Previously, the largest lymph node measures 2.3 x 0.4 x 1.1 cm. Normal morphology is present with normal central fatty geraldo and normal internal vascularity. Thin hypoechoic cortex noted. Impression: No suspicious findings. Stable left axillary lymph nodes. No evidence of malignancy. Dictated by Wyatt Andrews MD @ 08/11/2023 9:53:29 AM (Electronically Signed)
== END 2023-08-11 08:57 | disposition home or self-care (01) ==
PROVIDERS: PCP Internal Medicine; Visit Provider Internal Medicine Hematology & Oncology
DX: R59.0 Localized enlarged lymph nodes (principal); Z85.3 Personal history of malignant neoplasm of breast
CPT/HCPCS: 76882

== ENCOUNTER 2024-03-05 08:43 | Outpatient (CLI) | payer MEDICARE, BC, SELFPAY ==
--- NOTE | 2024-03-05 08:35 | MM_ITS ---
Patient: MEENAKSHI MCKEON Facility:?[facility] Patient ID:?[id number] Site Patient ID:?[id number] Site :?[id number] Study:?XRay-Breast Bilateral 3D W/CAD-03/05/2024 9:59:41 AM Ordering Physician:Sukumar Final Report: BILATERAL SCREENING MAMMOGRAM WITH COMPUTER-AIDED DETECTION AND TOMOSYNTHESIS TECHNIQUE: CC and MLO views were obtained. These mammographic images have been obtained using full-field digital technique. These mammographic images were interpreted with the benefit of computer-aided detection. Breast Tomosynthesis was used in this interpretation. COMPARISON FILM: 02/25/23, 02/22/22, 02/12/21. FINDINGS: There are scattered areas of fibroglandular density. IMPRESSION: There is no radiographic evidence for malignancy. ASSESSMENT: BI-RADS Category 2: Benign RECOMMENDATION: Routine screening mammogram in 1 year. A lay language report of this examination will be provided to the patient. Wyatt Andrews M.D. Diagnostic Radiologist [email or web address] DSM/sp R& Transcribed: 1:50 p.m. SP/Dictated by: Wyatt Andrews MD @ 03/05/2024 10:56:00 AM Signed by:?Wyatt Andrews MD @03/05/2024 2:49:28 PM (Electronic Signature)
--- OUTSIDE RECORDS SUMMARY | 2024-03-05 08:46 | XMS_ITS | Clinical Summary ---
Author Name Unknown Organization [facility] Address [place], [place] [address] Care Team Providers Care [employer] Equipment Tender Name Role Phone [facility] Primary Care Provider Unavail able Allergies No known active allergies Medications No known medications Active Problems Problem Noted Date Diagnosed Date health care maint 08/03/2007 Migraine, unspecified, witho ut mention of intractable migraine without mention of status migrainosus 08/03/2007 osteopenia 08/03/2007 Immunizations Name Administration Dates Next Due COVID-19 vaccine ([employer] 30mcg/0.3mL) P F, MDV 08/08/2021 Influenza, Inactivated AIIV4 (Age 65+ Years) Preserv Free 08/08/2021 Td, Preservative Free (age >= 7 Years) 5 Family History Medical History Relation Name Comments Hyperlipidemia Father Hypertension Father Hyperlipidemia Mother Hypertension Mother Relation Name Status Comments Father Mother Social History Tobacco Use Types Packs/Day Years Used Date Smoking Tobacco: Never Alcohol Use Standard Drinks/Week Comments Not Asked 0 (1 standard drink = 0.6 oz pur e alcohol) Sex and Gender Information Value Date Recorded Sex Assigned at Not on file Gender Identity Not on file Sexual Orientation Not on file Obstetrics History Last Filed Vital Signs Vital Sign Reading Time Taken Comments Blood Pressure 109/78 12/12/2007 8:20 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 Pulse 97 12/12/2007 8:20 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 Temperature 36.6 ??C (97.9 ??F) 12/12/2007 8:20 AM CS T Respiratory Rate - - Oxygen Saturation - - Inhaled Oxygen Concentration - - Weight 62.1 kg (137 lb) 12/12/2007 8:20 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 Height 159.4 cm (5' 2.75) 08/03/2007 3:53 PM CD T Body Mass Index 24.46 08/03/2007 3:53 PM CDT Plan of Treatment Health Maintenance Due Date Last Done Comments Tdap 1961 Depression screening for age 12+ 1962 BMI (ht and wt on same day) for age 18+ 1968 Hepatitis C screening for age 18-79 1968 Colonoscopy through age 75 1995 Zoster (shingles) series for age 50+ (1 of 2) 2000 Mammogram for age 45-75 08/03/2009 08/03/2008, 06/12 Lipids for age 45-75 08/13/2012 08/13/2007 Tetanus booster 03/05/2015 03/05/2005 DEXA/DXA scan for age 65+ 2015 08/11/2007 Medicare Wellness for age 65+ 2015 Pneumococcal series for age 65+ (1 of 1 - PCV) 2015 COVID-19 vaccine series (2022-24 season) 2023 08/08/2021, 01/23/2021, 01/02/2021 Influenza for age 65+ 07/04/2024 08/08/2021 Procedures Procedure Name Priority Date/Time Associated Diagnosis Comments SCAN-MAMMOGRAPHY REPORT 08/03/2008 12:00 AM CDT LIPID PANEL Routine 08/13/2007 7:07 AM CDT Screening Lipid Disorders XR DXA BONE DENSITY 2 SITES AXIAL Routine 08/11/2007 4:14 PM CDT osteopenia from Last 3 Months or Most Recently Relevant to Health Maintenance Results * SCAN-MAMMOGRAPHY REPORT (08/03/2008 12:00 AM CDT) Anatomical Region Laterality Modality Other Narrative Procedure Note Scanner - 08/03/2008 12:00 AM CDT Scanner OTHER * (ABNORMAL) LIPID PANEL (08/13/2007 7:07 AM CDT) CHOLESTEROL,TOTAL 209(H) 110 - 199 mg/dL [facility] TRIGLYCERIDES 56 <150 mg/dL [facility] HDL CHOLESTEROL 81 >40 mg/dL [facility] CHOL/HDL RATIO 2.58 <4.51 [facility] LDL CHOLESTEROL 117 <131 mg/dL [facility] PATIENT STATUS Fasting [facility] Blood specimen (specimen) BLOOD SPECIMEN / Unknown 08/13/2007 7:07 AM CDT 08/13/2007 7:06 AM CDT Adele Benito CHEMISTRY [facility] [address] [place] [address] * XR DEXA BONE DENSITY 2 SITES (08/11/2007 4:14 PM CDT) Anatomical Region Laterality Modality Spine, HIPS, HIPL, HIPR Other 08/11/2007 4:14 PM CDT Narrative 08/17/2007 1:51 PM CDT Please see scanned document for results of this study. Procedure Note Milan Marquez MD - 08/25/2007 Please see scanned document for results of this study. Adele Benito DEXA from Last 3 Months or Most Recently Relevant to Health Maintenance Care Teams [employer] Equipment Tender Relationship Specialty Start Date End Date Abhi Arriaga PCP - General 08/28/16
== END 2024-03-05 08:44 | disposition home or self-care (01) ==
LOC: MAMMO 08:44
PROVIDERS: PCP Internal Medicine; Visit Provider Internal Medicine Hematology & Oncology
DX: Z12.31 Encounter for screening mammogram for malignant neoplasm of breast (principal)
CPT/HCPCS: 77063; 77067

== ENCOUNTER 2024-07-19 10:00 | Outpatient (RCR) | payer MEDICARE, BC, SELFPAY ==
[2024-01-22 13:42] LABS: Chloride* 106 mmol/L (96-114); Potassium* 4.5 mmol/L (3.6-5.1); Sodium* 140 mmol/L (135-149)
[2024-01-22 13:44] LABS: Creatinine* 0.7 mg/dL (0.5-1.5); Estimated Glomerular Filt Rate 91 ml/min
[2024-01-22 13:45] LABS: Anion Gap 8 mEq/L (7-15); Blood Urea Nitrogen* 22 mg/dL (7-30); Calcium* 9.5 mg/dL (8.4-10.6); Carbon Dioxide* 26 mmol/L (20-32); Glucose* 94 mg/dL (60-115)
[2024-01-22] MEDS: DENOSUMAB 60 MG/ML SYRINGE SUBCUT (14:47)
[2024-07-19 10:25] LABS: Chloride* 105 mmol/L (96-114); Potassium* 5.2 mmol/L (3.6-5.1); Sodium* 138 mmol/L (135-149)
[2024-07-19 10:27] LABS: Creatinine* 0.7 mg/dL (0.5-1.5); Estimated Glomerular Filt Rate 91 ml/min
[2024-07-19 10:28] LABS: Anion Gap 6 mEq/L (7-15); Blood Urea Nitrogen* 20 mg/dL (7-30); Calcium* 9.9 mg/dL (8.4-10.6); Carbon Dioxide* 27 mmol/L (20-32); Glucose* 86 mg/dL (60-115)
[2024-07-19] MEDS: DENOSUMAB 60 MG/ML SYRINGE SUBCUT (11:34)
== END 2024-07-20 23:59 | disposition home or self-care (01) ==
LOC: CCIC 10:00
PROVIDERS: Internal Medicine Hematology & Oncology; PCP Internal Medicine; Referring Provider Internal Medicine; Visit Provider Physician Assistant
DX: C50.911 Malignant neoplasm of unspecified site of right female breast (principal); Z17.0 Estrogen receptor positive status [ER+]; M81.0 Age-related osteoporosis without current pathological fracture; Z79.811 Long term (current) use of aromatase inhibitors
CPT/HCPCS: 36415; 80048; 96372; 99214; G0463; J0897

== ENCOUNTER 2025-01-18 13:30 | Outpatient (RCR) | payer MEDICARE, BC, SELFPAY ==
[2025-01-17 13:34] LABS: Calcium* 10.1 mg/dL (8.4-10.6); Creatinine* 0.7 mg/dL (0.5-1.5); Est. Creatinine Clearance* 39.04; Estimated Glomerular Filt Rate 91 ml/min
--- NOTE | 2025-01-18 08:20 | URNOTE ---
Prior auth is not required for Prolia ([id number]). Pt has Medicare primary. Services are based on medical necessity and follow medicare guidelines
[2025-01-18 13:36] VITALS: BP 158/96; PULSE 74; RESP 16; TEMP 36.6; O2SAT 97
[2025-01-18] MEDS: DENOSUMAB 60 MG/ML SYRINGE SUBCUT (14:01)
== END 2025-07-16 23:59 | disposition home or self-care (01) ==
LOC: CCIC 13:30
PROVIDERS: PCP Internal Medicine; Referring Provider Internal Medicine; Visit Provider Physician Assistant
DX: M81.0 Age-related osteoporosis without current pathological fracture (principal); C50.911 Malignant neoplasm of unspecified site of right female breast; Z17.0 Estrogen receptor positive status [ER+]
CPT/HCPCS: 36415; 82310; 82565; 96372; 99214; G0463; J0897

== ENCOUNTER 2025-03-21 11:04 | Outpatient (CLI) | payer MEDICARE, BC, SELFPAY ==
--- NOTE | 2025-03-21 11:30 | CRLHL7_ITS ---
For Patients: As a result of the Century Cures Act, medical imaging exams and procedure reports are released immediately into your electronic medical record. You may view this report before your referring provider. If you have questions, please contact your health care provider. INDICATION: BILATERAL SCREENING MAMMOGRAM, ASYMPTOMATIC 74 Y/O FEMALE COMPARISON: 03/05/2024, 02/05/2023, 02/22/2022 TECHNIQUE: Digital mammogram in CC and MLO projections including computer-aided detection (CAD) and tomosynthesis. BREAST COMPOSITION: There are scattered areas of fibroglandular density. FINDINGS: No suspicious findings. ASSESSMENT: BI-RADS 2 Benign RECOMMENDATION: Annual screening mammogram. A lay language report of this examination will be provided to the patient. Dictated by: Wyatt Andrews MD @ 03/21/2025 11:44:00 (Electronically Signed)
== END 2025-03-21 11:05 | disposition home or self-care (01) ==
LOC: MAMMO 11:05
PROVIDERS: PCP Internal Medicine; Visit Provider Internal Medicine Hematology & Oncology
DX: Z12.31 Encounter for screening mammogram for malignant neoplasm of breast (principal)
CPT/HCPCS: 77063; 77067

== ENCOUNTER 2025-04-19 09:15 | Outpatient (RCR) | payer MEDICARE, BC, SELFPAY | END 2025-08-17 23:59 | disposition home or self-care (01) | PROVIDERS: PCP Internal Medicine; Visit Provider Internal Medicine | DX: M76.31 Iliotibial band syndrome, right leg (principal); M53.2X8 Spinal instabilities, sacral and sacrococcygeal region; Z51.89 Encounter for other specified aftercare | CPT/HCPCS: 97110; 97140; 97162 ==

== ENCOUNTER 2025-06-30 12:56 | Outpatient (CLI) | payer MEDICARE, BC, SELFPAY ==
--- NOTE | 2025-06-30 13:00 | CRLHL7_ITS ---
For Patients: As a result of the Century Cures Act, medical imaging exams and procedure reports are released immediately into your electronic medical record. You may view this report before your referring provider. If you have questions, please contact your health care provider. XR DXA Bone Mineral Density (BMD) Reason for exam: Long-term (current) use of aromatase inhibitors. Current height (in): 62. Weight (lb): 120. Menopause age: 48. Ethnicity: White. 1. Have you had a previous hip or vertebral fracture? No. 2. Have you had any fractures during your adult life which did not result from significant trauma (e.g., auto accident)? No. 3. Did either of your parents have a hip fracture? Yes. 4. Do you smoke? No. 5. Have you ever taken Glucocorticoids? Yes. 6. Do you have rheumatoid arthritis? No. 7. Do you have secondary osteoporosis? No. 8. Do you drink 3 or more alcoholic drinks per day? No. 9. Are you being treated for osteoporosis? Yes. 10. Have you ever taken any of the following medications: Actonel, Evista, Fosamax, Miacalcin, Reclast, Boniva, Forteo, HRT (i.e. estrogen/hormone therapy), Protelos, Prolia, Vitamin D, Calcium, other ??? please specify. ANSWER: Yes, vitamin D, Prolia. 11. Do you have any of the following medical conditions: Anorexia or bulimia, asthma or emphysema, end stage renal disease, hyperparathyroidism, any seizure disorders, cancer, inflammatory bowel diseases, hysterectomy, other ??? please specify. ANSWER: Yes, breast cancer. 12. What was your maximum height (inches)? 63. 13. Do you perform weight bearing exercise regularly? No. 14. Do you regularly consume dairy products? Yes. 15. Do you drink caffeinated beverages? Yes. 16. At what age did your period start? 11. 17. Are you premenopausal? No. 18. How many full term pregnancies have you had? 4. 19. Have you ever missed your period for more than 6 months in a row (not including or menopause)? No. TECHNIQUE: Bone mineral density study was performed using the [employer]. FINDINGS: The results of the study expressed as bone mineral density (BMD) are as follows: Lumbar spine L1 to L4: BMD: 0.962 g/cm2. T-score: -0.8. Z-score: 1.6. Neck Left: BMD: 0.550 g/cm2. T-score: -2.7. Z-score: -0.6. Right: BMD: 0.543 g/cm2. T-score: -2.8. Z-score: -0.7. Total Left: BMD: 0.685 g/cm2. T-score: -2.1. Z-score: -0.3. Right: BMD: 0.726 g/cm2. T-score: -1.8. Z-score: -0.0. IMPRESSION: Osteoporosis. *Comparison exams done prior to 04/2020 were performed on different unit, [employer]. COMPARISON: Compared with scan of 06/18/2023, the bone mineral density has increased by 7.4 percent at the spine and increased by 6.5 percent at the hip. Compared with scan of 04/19/2021, the bone mineral density has increased by 3.2 percent at the spine and increased by 4.8 percent at the hip. Wyatt Andrews M.D. Diagnostic Radiologist [email or web address] MARCELINO/edgar / bM/Dictated by: Wyatt Andrews MD @ 06/30/2025 2:24:00 PM (Electronically Signed)
== END 2025-06-30 12:57 | disposition home or self-care (01) ==
LOC: RAD 12:57
PROVIDERS: PCP Internal Medicine; Visit Provider Internal Medicine Hematology & Oncology
DX: M81.0 Age-related osteoporosis without current pathological fracture (principal); Z79.811 Long term (current) use of aromatase inhibitors
CPT/HCPCS: 77080

== ENCOUNTER 2025-08-23 10:39 | Outpatient (CLI) | payer MEDICARE, BC, SELFPAY ==
--- NOTE | 2025-08-23 10:45 | CRLHL7_ITS ---
For Patients: As a result of the Century Cures Act, medical imaging exams and procedure reports are released immediately into your electronic medical record. You may view this report before your referring provider. If you have questions, please contact your health care provider. INDICATION: postmenopausal bleeding COMPARISON: None. TECHNIQUE: 2D hall-scale and color Doppler images were acquired of the pelvis using a transabdominal and transvaginal approach. Transvaginal imaging performed to better visualize the endometrial stripe and ovaries. FINDINGS: Sonographic images demonstrate a normal size and smooth outer contour of the uterus. Uterus measures 6.5 cm in length by 3.1 cm in AP diameter by 4.6 cm in transverse dimension. The myometrium has a normal uniform echotexture. The endometrial lining measures 7.8 mm in composite thickness. The ovaries are not visualized due to overlying bowel gas. There are no suspicious fluid collections within the cul-de-sac. IMPRESSION: Endometrial thickness 7.8 millimeters. Dictated by Wyatt Andrews MD @ 08/23/2025 11:39:46 AM (Electronically Signed)
== END 2025-08-23 10:40 | disposition home or self-care (01) ==
LOC: US 10:40
PROVIDERS: PCP Internal Medicine; Visit Provider Family Medicine
DX: N95.0 Postmenopausal bleeding (principal); R93.89 Abnormal findings on diagnostic imaging of other specified body structures
CPT/HCPCS: 76830; 76856